=== PATIENT | male | born 1945 | race Caucasian/White ===

== ENCOUNTER 2016-09-09 11:00 | Emergency (ER) | payer MEDICARE, OTHER ==
[2016-09-09 11:18] VITALS: BP 130/75
[2016-09-09] MEDS ORDERED: Doxycycline 100 MG Cap PO ONE (11:41)
--- NOTE | 2016-09-09 11:43 | EDM.PDOC ---
ED HPI GENERAL MEDICAL PROBLEM - General Chief Complaint: Bite:Animal, Insect Stated Complaint: TICK BITE Time Seen by Provider: 09/09/16 11:28 Source of Information: Reports: Patient History Limitations: Reports: No Limitations - History of Present Illness INITIAL COMMENTS - FREE TEXT/NARRATIVE: Patient presents with complaints of infected tick bite to mid-abdomen. He is not sure how long the tick was attached to him, however when he pulled the tick out the head was buried under his skin. Onset: Unknown/Unsure Location: Reports: Abdomen Associated Symptoms: Denies: Fever/Chills, Headaches, Malaise, Nausea/Vomiting, Rash - Related Data Allergies Allergy/AdvReac Type Severity Reaction Status Date / Time No Known Allergies Allergy Verified 09/09/16 11:18 Home Meds: Home Meds Aspirin [Enrique Chewable Aspirin] 1 tab PO DAILY 08/22/14 [History] Ezetimibe [Zetia] 1 tab PO DAILY 08/22/14 [History] Lisinopril [Prinivil] 1 tab PO DAILY 08/22/14 [History] [id number] Ethyl Esters [Lovaza] 1 tab PO DAILY 08/22/14 [History] Sildenafil [Viagra] 08/22/14 [History] amLODIPine/atorvaSTATin [Caduet 5-20 MG] 1 tab PO DAILY 08/22/14 [History] Cholecalciferol (Vitamin D3) [Vitamin D3] 1 tab PO DAILY 09/09/16 [History] Finasteride 1 tab PO DAILY 09/09/16 [History] Glucosamine HCl [Glucosamine] 1 tab PO DAILY 09/09/16 [History] Psyllium with Sucrose [Metamucil] 1 dose PO ASDIRECTED 09/09/16 [History] Past Medical History HEENT History: Reports: Cataract Cardiovascular History: Reports: High Cholesterol, Hypertension Genitourinary History: Reports: BPH - Past Surgical History HEENT Surgical History: Reports: Cataract Surgery, Tonsillectomy Musculoskeletal Surgical History: Reports: Arthroscopic Knee Social & Family History - Tobacco Use Smoking Status *Q: Never Smoker - Alcohol Use Days Per Week of Alcohol Use: 7 Number of Drinks Per Day: 4 Total Drinks Per Week: 28 - Recreational Drug Use Recreational Drug Use: No ED ROS GENERAL - Review of Systems Review Of Systems: See Below Constitutional: Denies: Fever, Chills, Malaise, Weakness, Fatigue HEENT: Reports: No Symptoms Respiratory: Denies: Shortness of Breath, Wheezing, Pleuritic Chest Pain, Cough , Sputum Cardiovascular: Denies: Chest Pain, Dyspnea on Exertion, Lightheadedness, Palpitations, PND, Syncope Endocrine: Reports: No Symptoms GI/Abdominal: Reports: No Symptoms Skin: Reports: Wound, Other (red, irritating wound to abdomen. ) Neurological: Reports: No Symptoms Psychiatric: Reports: No Symptoms Hematologic/Lymphatic: Reports: No Symptoms Immunologic: Reports: No Symptoms ED EXAM, ANIMAL BITE - Physical Exam Exam: See Below Text/Narrative:: Genoveva is a 71 year old male with tick bite to abdomen for unknown amount of time. Head of tick was imbedded into skin, tick was engorged. Exam Limited By: No Limitations General Appearance: Alert, WD/WN, No Apparent Distress Eye Exam: Bilateral Eye: Normal Inspection, PERRL Ears: Normal External Exam, Normal Canal, Hearing Grossly Normal, Normal TMs Nose: Normal Inspection, Normal Mucosa, No Blood Throat/Mouth: Normal Inspection, Normal Lips, Normal Teeth, Normal Gums, Normal Oropharynx, Normal Voice, No Airway Compromise Head: Atraumatic, Normocephalic Neck: Normal Inspection, Supple, Non-Tender, Full Range of Motion Respiratory/Chest: No Respiratory Distress, Lungs Clear, Normal Breath Sounds, No Accessory Muscle Use, Chest Non-Tender Cardiovascular: Normal Peripheral Pulses, Regular Rate, Rhythm, No Edema, No Gallop, No Murmur, No Rub Peripheral Pulses: 2+: Radial (L), Radial (R), Dorsalis Pedis (L), Dorsalis Pedis (R) Back Exam: Normal Inspection, Full Range of Motion. No: CVA Tenderness (R), CVA Tenderness (L) Extremities: Normal Inspection, Normal Range of Motion, Non-Tender, No Pedal Edema, Normal Capillary Refill Neurological: Alert, Oriented, CN II-XII Intact, Normal Cognition, Normal Gait, No Motor/Sensory Deficits Psychiatric: Normal Affect, Normal Mood Skin Exam: Warm/Dry, Other (red, pustular wound without drainage, fluctuance or bull's eye appearance. ) Lymphatic: No Adenopathy Course - Vital Signs Last Recorded V/S: Last Vital Signs Temp 36.6 C 09/09/16 11:17 Pulse 78 09/09/16 11:17 Resp 16 09/09/16 11:17 BP 130/75 09/09/16 11:17 Pulse Ox 96 09/09/16 11:17 - Orders/Labs/Meds Meds: Medications Discontinued Medications Generic Name Dose Route Start Last Admin Trade Name Ofelia PRN Reason Stop Dose Admin Doxycycline Hyclate 200 mg 09/09/16 11:41 09/09/16 11:50 Vibramycin PO 09/09/16 11:42 200 mg ONETIME ONE Administration Departure - Departure Time of Disposition: 11:42 Disposition: Home, Self-Care 01 Condition: Good Clinical Impression: Infected tick bite - Discharge Information Instructions: Insect Bite, [id number] Referrals: PCP,None [Primary Care Provider] - Forms: ED Department Discharge Additional Instructions: Wash skin as you normally do. Do not pick at the area. You have been given a prophylactic dose of doxycycline 200mg PO in the emergency room due to unknown length of tick bite. Report to your primary provider for a "bulls eye" rash, fever. chills, malaiase or aching joints. Return at any time for issues or concern. - Assessment/Plan Assessment:: Infected tick bite Plan: Doxycycline 200 mg PO in emergency room, follow up with primary care provider for worsening.
== END 2016-09-09 11:55 | disposition home or self-care (01) ==
LOC: JP.ED 11:00
DX: S30.861A Insect bite (nonvenomous) of abdominal wall, initial encounter (principal); L08.9 Local infection of the skin and subcutaneous tissue, unspecified; E78.00 Pure hypercholesterolemia, unspecified; Z79.82 Long term (current) use of aspirin; Z79.899 Other long term (current) drug therapy; Z98.49 Cataract extraction status, unspecified eye; Z90.49 Acquired absence of other specified parts of digestive tract; Z98.890 Other specified postprocedural states; W57.XXXA Bitten or stung by nonvenomous insect and other nonvenomous arthropods, initial encounter
CPT/HCPCS: 99283; A9270; 99282

== ENCOUNTER 2020-09-04 07:09 | Emergency (ER) | payer MEDICARE ==
[2020-09-04 07:20] VITALS: BP 124/85; PULSE 87
--- NOTE | 2020-09-04 07:42 | EDM.PDOC ---
ED HPI GENERAL MEDICAL PROBLEM - General Chief Complaint: Bite:Animal, Insect Stated Complaint: INFECTED TICK BITE L HIP Time Seen by Provider: 09/04/20 07:30 Source of Information: Reports: Patient, RN. Denies: Old Records History Limitations: Reports: No Limitations - History of Present Illness INITIAL COMMENTS - FREE TEXT/NARRATIVE: 75 yo male from [place] presents requesting removal of a wood tick from his L hip area. Has some associated redness and itching. Onset: Today Onset Date: 09/04/20 Duration: Hour(s): Location: Reports: Pelvis (L hip) Quality: Reports: Other (itchy) Severity: Mild Improves with: Reports: None Worsens with: Reports: Other (time) Context: Reports: Other (tick) Associated Symptoms: Reports: No Other Symptoms Treatments PATIENT SERVICE TECHNICIAN PST: Reports: Other (see below) (none) - Related Data Allergies Allergy/AdvReac Type Severity Reaction Status Date / Time No Known Allergies Allergy Verified 09/04/20 07:21 Home Meds: Home Meds Aspirin [Enrique Chewable Aspirin] 1 tab PO ASDIRECTED 08/22/14 [History] Ezetimibe [Zetia] 1 tab PO DAILY 08/22/14 [History] Lisinopril [Prinivil] 1 tab PO DAILY 08/22/14 [History] [id number] Ethyl Esters [Lovaza] 1 tab PO DAILY 08/22/14 [History] amLODIPine/atorvaSTATin [Caduet 5-20 MG] 1 tab PO DAILY 08/22/14 [History] Cholecalciferol (Vitamin D3) [Vitamin D3] 1 tab PO DAILY 09/09/16 [History] Finasteride 1 tab PO DAILY 09/09/16 [History] Glucosamine HCl [Glucosamine] 1 tab PO DAILY 09/09/16 [History] Psyllium with Sucrose [Metamucil] 1 dose PO ASDIRECTED 09/09/16 [History] Past Medical History HEENT History: Reports: Cataract Cardiovascular History: Reports: High Cholesterol, Hypertension Genitourinary History: Reports: BPH - Infectious Disease History Infectious Disease History: Reports: Chicken Pox, Measles, Mumps Other Infectious Disease History: COVID VACC X2 - Past Surgical History HEENT Surgical History: Reports: Cataract Surgery, Tonsillectomy Musculoskeletal Surgical History: Reports: Arthroscopic Knee Social & Family History - Tobacco Use Tobacco Use Status *Q: Former Tobacco User Used Tobacco, but Quit: Yes Month/Year Tobacco Last Used: 40 YEARS - Recreational Drug Use Recreational Drug Use: No ED ROS GENERAL - Review of Systems Review Of Systems: See Below Constitutional: Reports: No Symptoms Skin: Reports: Erythema (near/around site of tick attachment only) Neurological: Reports: No Symptoms ED EXAM, ANIMAL BITE - Physical Exam Exam: See Below Exam Limited By: No Limitations General Appearance: Alert, WD/WN, No Apparent Distress Extremities: Normal Inspection Neurological: Alert, Oriented, CN II-XII Intact, Normal Cognition, No Motor/Sensory Deficits Psychiatric: Normal Affect, Normal Mood Skin Exam: Warm/Dry, Other (there is a wood tick attached to his L hip area. This is removed with a forceps. There is some associated redness and induration in this area. Not hot to touch. ) Course - Vital Signs Last Recorded V/S: Last Vital Signs Temp 36.6 C 09/04/20 07:20 Pulse 87 09/04/20 07:20 Resp 14 09/04/20 07:20 BP 124/85 09/04/20 07:20 Pulse Ox 100 09/04/20 07:20 Departure - Departure Time of Disposition: 07:40 Disposition: Home, Self-Care 01 Condition: Good Clinical Impression: Wood tick bite - Discharge Information *PRESCRIPTION DRUG MONITORING PROGRAM REVIEWED*: Not Applicable *COPY OF PRESCRIPTION DRUG MONITORING REPORT IN PATIENT [facility]: Not Applicable Referrals: PCP,None [Primary Care Provider] - Additional Instructions: Keep area clean with alcohol or soap and water. Avoid scratching. Take diphenhydramine as needed for the itching. Recheck as needed. No concern about tick diseases in this area with wood ticks as opposed to deer ticks that do carry several diseases. Sepsis Event Note (ED) - Evaluation Sepsis Screening Result: No Definite Risk - Focused Exam Vital Signs: Vital Signs Temp Pulse Resp BP Pulse Ox 09/04/20 07:20 36.6 C 87 14 124/85 100 09/04/20 07:18 36.6 C 87 14 124/85 100
== END 2020-09-04 07:46 | disposition home or self-care (01) ==
LOC: JP.ED 07:09
DX: S70.262A Insect bite (nonvenomous), left hip, initial encounter (principal); I10 Essential (primary) hypertension; E78.00 Pure hypercholesterolemia, unspecified; Z79.82 Long term (current) use of aspirin; Z79.899 Other long term (current) drug therapy; W57.XXXA Bitten or stung by nonvenomous insect and other nonvenomous arthropods, initial encounter; Z87.891 Personal history of nicotine dependence
CPT/HCPCS: 99282